=== PATIENT | male | born 1960 | race Caucasian/White ===

== ENCOUNTER 2017-12-09 18:45 | Emergency (ER) | payer OTHER, SELFPAY ==
[2017-12-09 18:46] VITALS: BP 187/106; PULSE 73; RESP 16; TEMP 37.4; O2SAT 97; BMI 36.9
--- NOTE | 2017-12-09 19:19 | CT_ITS ---
STUDY: CT ABDOMEN AND PELVIS WITHOUT CONTRAST REASON FOR EXAM: Male, 57 years old. Right flank pain. Back pain RADIATION DOSAGE (If Supplied By Facility): CTDIvol = ( 23.23 ) mGy, DLP = ( 1236.04 ) mGycm TECHNIQUE: Transaxial images were obtained from the dome of the diaphragm to the symphysis pubis without oral contrast, and without intravenous contrast. Sagittal and coronal images were reconstructed. Individualized dose optimization techniques were used for this CT. COMPARISON: None. FINDINGS: The visualized lung bases are unremarkable. The visualized portions of the heart are within normal limits. There is hepatomegaly with diffuse hepatic enlargement. The gallbladder is contracted. There are multiple benign calcified granulomata of the spleen. Normal pancreas. Normal bilateral adrenal glands. Normal right kidney. There is a 1.2 cm cyst at the lower pole of the left kidney. No stones or hydronephrosis. Normal visualized stomach. Normal small intestine. Normal colon. The appendix is visualized and appears normal. Normal abdominal aorta. Normal inferior vena cava. Normal retroperitoneum. Normal urinary bladder. There are prostatic calcifications. There is no free fluid in the abdomen or pelvis. Normal abdominal wall. There is mild degenerative change of the spine. Postoperative changes in the left proximal femur. CT/Abdomen/Pelvis without Cont IMPRESSION: Hepatomegaly. Contracted gallbladder. No dilated loops of bowel. No urinary stones or hydronephrosis. Electronically Signed: Nilo Lopez MD at 20:18 EDT , Service support ,
--- NOTE | 2017-12-09 19:22 | ED.DCSUM_ITS ---
- ER Visit Summary Date of Service: 12/09/17 Chief Complaint: Right flank pain History of Present Illness: The patient is a 57 M presenting with right flank pain. He states it started around 3 PM yesterday. He states he twisted and felt a sharp pain in his right side. He does not recall any other injury. He denies dysuria or hematuria. Denies vomiting. Denies abdominal pain. Denies other complaints. Physical Examination: Vitals are stable. Patient is afebrile. Alert no acute distress. HEENT exam is unremarkable. Neck is supple. Lungs are clear and equal bilaterally. Heart is regular rate and rhythm. Abdomen is soft nontender nondistended. Back: Right CVA tenderness, right paraspinal lumbar muscle tenderness, no midline tenderness. Extremities are unremarkable. Skin is warm and dry. Remainder of exam is unremarkable. Emergency Department Course and Treatment: Patient is given Toradol, Zofran IV. Urinalysis is unremarkable. CT abdomen and pelvis shows no acute process. Patient continues to have pain and was given Valium. He states pain is worsened with movement. He was given morphine IV. He now has some improvement of his pain. He is advised to follow-up with his primary care physician. Advised return to ED for any worsening complaints. Disposition: Discharge home Impression: Lumbar strain This note was generated with [employer] dictation software. It may contain incorrect words, spelling, and punctuation that were not noted in review of the chart prior to signing ED Disposition - Plan for ED Patient: Chief Complaint: Flank Pain
[2017-12-09] MEDS: Ketorolac 30 MG/ML Syringe IV (19:30)
[2017-12-09] MEDS: Ondansetron 4 MG/2 ML Vial IV (19:30)
[2017-12-09 19:40] LABS: Bacteria 0 SEEN /hpf (None Seen); Mucous, Urine 0 SEEN /hpf (<or=2+); Red Blood Cells-Urine 0 SEEN /hpf (0-5); White Blood Cells 0 SEEN /hpf (0-5)
[2017-12-09 19:55] LABS: Color, Urine Yellow (Yellow); Glucose, Dipstick Normal (Normal); Ketone-Dipstick Negative (Negative); Leukocyte Esterase-Dipstick Negative /ul (Negative); Nitrite-Dipstick Negative (Negative); Occult Blood-Urine 10 /ul (Negative); Protein-Dipstick 15 mg/dl (Negative); Specific Gravity, Urine 1.025 (1.002-1.030); Urine Bilirubin Dipstick Negative (Negative); Urine Clarity Clear (Clear); Urine Urobilinogen 1 mg/dl (Normal)
[2017-12-09 20:15] LABS: Squamous Epithelial Cells - UA 0-5 SEEN /hpf (0-5)
[2017-12-09] MEDS: diazePAM 5 MG Tablet PO (20:30)
[2017-12-09 21:12] VITALS: BP 176/100; PULSE 66; RESP 18; O2SAT 97
[2017-12-09] MEDS: morphine 8 MG/ML Syringe IV (21:51)
[2017-12-09 22:32] VITALS: BP 159/97; PULSE 60; O2SAT 94
--- NOTE | 2017-12-09 22:35 | ED.DEP ---
ED Disposition - Plan for ED Patient: Chief Complaint: Flank Pain Instructions: ED Sprain Strain Lumbar Prescriptions: Oxycodone HCl/Acetaminophen [Percocet 5/325] 1 tablet PO Q6H PRN PRN 3 Days #12 tablet PRN Reason: Pain Referrals: [facility],Out of [Primary Care Provider] -
[2017-12-09] MEDS: oxyCODONE 5 MG Tablet PO (23:14)
== END 2017-12-09 22:54 | disposition home or self-care (01) ==
PROVIDERS: Emergency Provider Emergency Medicine
DX: S39.012A Strain of muscle, fascia and tendon of lower back, initial encounter (principal); I10 Essential (primary) hypertension; K21.9 Gastro-esophageal reflux disease without esophagitis; Z79.82 Long term (current) use of aspirin; Z79.899 Other long term (current) drug therapy; X50.1XXA Overexertion from prolonged static or awkward postures, initial encounter; Y93.89 Activity, other specified; Y92.89 Other specified places as the place of occurrence of the external cause; Y99.8 Other external cause status
CPT/HCPCS: 74176; 81001; 96374; 96375; 99283; A4216; J2405